=== PATIENT | male | born 1980 | race Caucasian/White ===

== ENCOUNTER 2020-03-08 18:04 | Emergency (ER) | payer OTHER ==
[~2020-03-08] VITALS: Ht 180.3 cm; Wt 74.8 kg
[2020-03-08 19:31] VITALS: BP_SYST 140
--- NOTE | 2020-03-08 19:35 | NUR ---
PATIENT RETURNED TO WAITING ROOM AWAITING ROOM ASSIGNMENT
--- NOTE | 2020-03-08 23:50 | NUR ---
Patient left without being seen. No further treatment provided. ER MD aware
--- NOTE | 2020-03-08 23:50 | NUR ---
Called pt x 3, no answer
== END 2020-03-08 23:50 | disposition left against medical advice (07) ==
LOC: SED 18:04
DX: R07.81 Pleurodynia (principal); R06.02 Shortness of breath; Z53.21 Procedure and treatment not carried out due to patient leaving prior to being seen by health care provider